=== PATIENT | male | born 1970 | race African-American/Black ===

== ENCOUNTER → 2017-06-13 | Emergency (ER) | payer OTHER ==
[~2017-06-13] VITALS: Ht 167.6 cm; Wt 65.8 kg
[~2017-06-13] MED LIST: DESPEC-DM TABL1 EAC1 PO; OSEL75CA PO
== END | disposition home or self-care (01) ==
LOC: ER 15:50
DX: K52.9 Noninfective gastroenteritis and colitis, unspecified (principal); E86.0 Dehydration

== ENCOUNTER → 2019-04-06 | Emergency (ER) | payer OTHER ==
[~2019-04-06] VITALS: Ht 167.6 cm; Wt 68.0 kg
== END | disposition home or self-care (01) ==
LOC: ER 17:57
DX: J06.9 Acute upper respiratory infection, unspecified (principal); B96.0 Mycoplasma pneumoniae [M. pneumoniae] as the cause of diseases classified elsewhere

== ENCOUNTER 2021-03-19 07:38 | Inpatient (IN) | payer OTHER ==
[~2021-03-19] VITALS: Ht 167.6 cm; Wt 70.8 kg
--- NOTE | 2021-03-19 08:13 | NUR ---
PACIENMTE ALERTA Y OERINTADO REFIERE QUE DESDE HACE 1 SEMAMA PRESENTA MOLESTIAS ESTOMACALES GUNJAN HOY LE COMENZO A DOLOR EL ABDOMEN. SE MONITOREAN S/V Y SE UBICA EN OBSERVACION CAMA 06. COSULTADO POR .
--- NOTE | 2021-03-19 08:58 | NUR ---
PACIENTE EVALUADO POR EL A QUIEN ORDENA TRATAMIENTO MEDICO.SE ORIENTA A PACIENTE SOBRE EL MISMO MARGARITO REFIERE ENTENDER. SE REALIZAN MUESTRAS DE LABORATORIO BAJO MEDIDAS ASEPTICAS Y SE ADMINISTRAN MEDICAMENTOS YARED ORDEN MEDICA. SE ESPERA POR CT ABDOMEN/PELVICO.
--- NOTE | 2021-03-19 11:52 | NUR ---
PACIENTE REEVALUADO POR EL QUIEN ORDENA TX MEDICO. SE REALIZA EKG Y COVID MOLECULAR YARED ORDEN MEDICA. SE ESPERA POR CONSULTA PARA CIRUGIA.
[2021-03-20] MEDS ORDERED: AMOX1TAB5 PO (12:24)
[2021-03-20] MEDS ORDERED: ULTRACET PO (12:24)
== END 2021-03-20 15:09 | disposition home or self-care (01) | DRG 343 ==
LOC: ER 07:38 → O/R 12:49 → SEC-K 12:49 → O/R 14:12 → SURH 21:15
PROVIDERS: ADMIT Surgery; ATTEND Surgery
PROC: 0DTJ0ZZ Resection of Appendix, Open Approach (ICD-10-PCS; principal; 2021-03-19 15:30)
DX: K35.891 Other acute appendicitis without perforation, with gangrene (principal)

== ENCOUNTER 2022-03-24 11:03 | Emergency (ER) | payer OTHER ==
[~2022-03-24] VITALS: Ht 165.1 cm; Wt 70.3 kg
[~2022-03-24 11:03] MED LIST changes: +AMOX1TAB5 PO; +ULTRACET PO
== END 2022-03-24 15:07 | disposition home or self-care (01) ==
LOC: ER 11:03
DX: N50.811 Right testicular pain (principal)

== ENCOUNTER 2023-01-16 12:36 | Emergency (ER) | payer OTHER ==
[~2023-01-16] VITALS: Ht 167.6 cm; Wt 54.4 kg
== END 2023-01-16 14:10 | disposition home or self-care (01) ==
LOC: ER 12:37
DX: R53.81 Other malaise (principal)

== ENCOUNTER 2024-09-29 18:22 | Inpatient (IN) | payer OTHER ==
[~2024-09-29] VITALS: Ht 167.6 cm; Wt 63.5 kg
--- NOTE | 2024-09-29 19:09 | NUR ---
SE RECIBE PTE ALERTA Y ORIENTADO ELCUAL REFIERE VENIR POR DOLOR ABDOMINAL EN CUADRANTE INFERIOR CHUCKIE DESDE HACE VARIOS JAFFE Y FIEBRE. PTE REFIERE TENER DIFICULTAD PARA EVACUAR. SE MIDEN S/V A PTE Y SE UBICA.
[2024-09-29] MEDS ORDERED: KETOROLAC TROMETHAMINE 60 MG VIAL IM ONE (21:45)
[2024-09-29] MEDS ORDERED: KETOROLAC TROMETHAMINE 30 MG VIAL ONE (21:56)
[2024-09-29 22:15] LABS: BASO % 0.4 % (0.1-1.2); EOS # 0.16 (0.04-0.54); EOS % 1.4 % (0.7-7.0); HEMATOCRIT 38.5 % (40.1-51.0); LYMPH # 1.47 (1.18-3.74); MONO # 0.87 (0.24-0.82); MONO % 7.7 % (4.7-12.5); NEUT # 8.73 (1.56-6.13); NEUT % 77.1 % (34.0-71.1); PLATELET COUNT 287 K/uL (163-369); RED BLOOD COUNT 4.19 M/uL (4.63-6.08); RED CELL DISTRIBUTION WIDTH 12.8 % (11.6-14.4)
--- NOTE | 2024-09-29 22:31 | NUR ---
SE ORIENTA SOBRE TRATAMIENTO MEDICO EL CUAL INDICA ENTENDER Y ACEPTAR. SE REALIZA EXTRACCION DE MUESTRAS BAJO MEDIDAS ASEPTICAS. SE ADMNISTRA MEDICAMENTO YARED ORDEN MEDICA.
[2024-09-29 22:38] LABS: BILIRUBIN TOTAL 1.1 mg/dL (0.3-1.2); CALCIUM 9.3 mg/dL (8.5-10.1); CREATININE SERUM 0.9 mg/dL (0.70-1.30); GFR 87.61; GLOBULINA 3.7 G/DL (2.4-3.5); POTASSIUM 3.9 mEq/L (3.5-5.1); TOTAL PROTEIN 7.7 gm/dL (6.4-8.2)
[2024-09-29 23:19] LABS: PH,URINE 6.5 (5.0-8.0); URINE APPEARANCE Clear; URINE BILIRRUBIN Negative (NEGATIVE); URINE COLOR Yellow; URINE GLUCOSE Negative (NEGATIVE); URINE KETONE Negative (NEGATIVE); URINE LEUKOCYTE Negative; URINE NITRATE Negative; URINE PROTEIN Negative (NEGATIVE)
[2024-09-29 23:23] LABS: URINE RBC 17.5 uL (0.0-20.8); URINE WBC 2.5 uL (0.0-23.2)
[2024-09-29 23:35] LABS: URINE BLOOD TRACES
[2024-09-30] MEDS ORDERED: TRAMADOL HCL 50 MG TABLET PO STA (01:14)
[2024-09-30] MEDS ORDERED: 0.9 % SODIUM CHLORIDE 1,000 ML IV STA (01:52)
[2024-09-30] MEDS ORDERED: METRONIDAZOLE/SODIUM CHLORIDE 500 MG/100 ML PIGGYBACK IV STA (01:53)
[2024-09-30] MEDS ORDERED: CIPROFLOXACIN IN 5 % DEXTROSE 400 MG/200 ML PIGGYBAG IV STA (01:53)
[2024-09-30] MEDS ORDERED: CIPROFLOXACIN IN 5 % DEXTROSE 400 MG/200 ML PIGGYBAG IV ONE (01:54)
[2024-09-30] MEDS ORDERED: METRONIDAZOLE/SODIUM CHLORIDE 500 MG/100 ML PIGGYBACK IV ONE ×2 (01:54→13:46)
[2024-09-30] MEDS ORDERED: MORPHINE SULFATE 4 MG/ML VIAL IV STA (01:54)
--- NOTE | 2024-09-30 07:23 | NUR ---
MASCULINO ALERTA Y ORIENTADO X3 EN CAMPOS POSICION MAS BAJA Y BARANDAS ELEVADAS POR SEGURIDAD. CANALIZACION PATENTE ALISE DE EDEMA Y ERITEMA CON IVF'S YARED ORDEN MEDICA. PACIENTE CONSULTADO CON DR BESSY QUINTERO.
[2024-09-30] MEDS ORDERED: DEXTROSE 5 % AND 0.9 % NACL 1,000 ML IV SCH (13:30)
[2024-09-30] MEDS ORDERED: METRONIDAZOLE/SODIUM CHLORIDE 100 ML IV SCH (13:32)
[2024-09-30] MEDS ORDERED: FAMOTIDINE/PF 20 MG/2 ML VIAL IV SCH (13:32)
[2024-09-30] MEDS ORDERED: ACETAMINOPHEN 500 MG GEL..CAP PO PRN (13:45)
[2024-09-30] MEDS ORDERED: MEPERIDINE HCL/PF 25 MG/ML VIAL IM PRN (13:45)
[2024-09-30] MEDS ORDERED: ONDANSETRON HCL 4 MG in DEXTROSE 5 % IN WATER 50 ML IV PRN (13:45)
[2024-09-30] MEDS ORDERED: FAMOTIDINE/PF 20 MG/2 ML VIAL ONE (13:46)
[2024-09-30 15:09] VITALS: BP 128/81; O2SAT 98
[2024-09-30 16:56] LABS: COVID-19 AG NEGATIVE (NEGATIVE)
[2024-09-30] MEDS ORDERED: CIPROFLOXACIN IN 5 % DEXTROSE 200 ML IV SCH (17:00)
[2024-09-30 18:01] VITALS: BP 138/75; O2SAT 95
[2024-10-01 00:29] VITALS: BP 120/66; O2SAT 98
[2024-10-01 07:54] LABS: INR 1.04; PARTIAL THROMBOPLASTIN TIME 29.6 SECONDS (22.0-34.0); PROTHROMBIN TIME 11.3 SECONDS (9.0-11.5)
[2024-10-01 08:10] LABS: ALBUMIN 3.4 gm/dL (3.4-5.0); BILIRUBIN TOTAL 1.04 mg/dL (0.3-1.2); C-REACTIVE PROTEIN 10.1 MG/DL (0.00-0.29); CALCIUM 8.8 mg/dL (8.5-10.1); CREATININE SERUM 0.82 mg/dL (0.70-1.30); GFR 97.54; GLOBULINA 2.8 G/DL (2.4-3.5); MAGNESIUM 1.8 mg/dL (1.8-2.4); PHOSPHOROUS 2.5 mg/dL (2.5-4.9); POTASSIUM 4.58 mEq/L (3.5-5.1); PROSTATIC SPECIFIC ANTIGEN 0.646 NG/ML (0.010-4.00); TOTAL PROTEIN 6.2 gm/dL (6.4-8.2); TSH 0.465 uIU/mL (0.358-3.74)
[2024-10-01 09:14] VITALS: BP 108/65
[2024-10-01 10:35] LABS: BASO % 0.3 % (0.1-1.2); EOS # 0.26 (0.04-0.54); EOS % 3.8 % (0.7-7.0); HEMATOCRIT 36.1 % (40.1-51.0); LYMPH # 0.87 (1.18-3.74); LYMPH % 12.6 % (19.3-53.1); MEAN CORPUSCULAR HEMOGLOBIN 30.8 pg (25.6-32.2); MONO # 0.52 (0.24-0.82); MONO % 7.5 % (4.7-12.5); NEUT # 5.21 (1.56-6.13); NEUT % 75.5 % (34.0-71.1); PLATELET COUNT 261 K/uL (163-369); RED BLOOD COUNT 3.89 M/uL (4.63-6.08); RED CELL DISTRIBUTION WIDTH 12.9 % (11.6-14.4)
[2024-10-01 10:36] LABS: PH,URINE 5.5 (5.0-8.0); URINE APPEARANCE Clear; URINE BILIRRUBIN Negative (NEGATIVE); URINE BLOOD Negative; URINE COLOR Dark Yellow; URINE GLUCOSE Negative (NEGATIVE); URINE KETONE 15 (NEGATIVE); URINE LEUKOCYTE Trace; URINE NITRATE Negative; URINE PROTEIN Trace (NEGATIVE)
[2024-10-01 10:37] LABS: URINE EPITHELIAL CELLS 5.6 uL (0.0-38.8); URINE RBC 28.4 uL (0.0-20.8); URINE WBC 3.4 uL (0.0-23.2)
[2024-10-01 10:41] LABS: URINE BACTERIA 0 uL (0.0-1933)
[2024-10-01 10:44] LABS: ERYTHROCYTE SEDIMENTATION RATE 49 mm/hr (0-20)
[2024-10-01 15:00] VITALS: BP 125/83; O2SAT 97
[2024-10-02] MEDS ORDERED: ZOLPIDEM TARTRATE 10 MG TABLET PO SCH (01:15)
[2024-10-02 02:03] VITALS: BP 122/76; O2SAT 98
[2024-10-02 09:12] VITALS: BP 123/78
[2024-10-02 15:00] VITALS: BP 135/81; O2SAT 100
[2024-10-02] MEDS ORDERED: LACTOBACILLUS ACIDOPHILUS 1 CAP CAP PO SCH (18:09)
[2024-10-03 01:31] VITALS: BP 132/82; O2SAT 100
[2024-10-03 08:47] VITALS: BP 124/82; O2SAT 97
[2024-10-03] MEDS ORDERED: INTESTINEX680 M1 PO (14:36)
[2024-10-03] MEDS ORDERED: PEPCID AC20 MG PO (14:36)
[2024-10-03] MEDS ORDERED: CIPRO500 MG PO (14:36)
[2024-10-03] MEDS ORDERED: METRONIDAZOLE500 MG PO (14:36)
[2024-10-03] MEDS ORDERED: METROnidazole 500 MG TABLET PO SCH (17:00)
[2024-10-03] MEDS ORDERED: FAMOtidine 20 MG TABLET PO SCH (21:00)
== END 2024-10-03 15:55 | disposition home or self-care (01) | DRG 392 ==
LOC: ER 19:41 → MEDI 09-30 13:48
PROVIDERS: Preventive Medicine Public Health & General Preventive Medicine; ADMIT Internal Medicine; ATTEND Internal Medicine
PROC: BW21YZZ Computerized Tomography (CT Scan) of Abdomen and Pelvis using Other Contrast (ICD-10-PCS; principal; 2024-09-29)
DX: K57.32 Diverticulitis of large intestine without perforation or abscess without bleeding (principal); E86.0 Dehydration; K21.9 Gastro-esophageal reflux disease without esophagitis; Z86.19 Personal history of other infectious and parasitic diseases